=== PATIENT | male | born 1960 | race African-American/Black ===

== ENCOUNTER 2020-04-21 08:29 | Emergency (ER) | payer MEDICAID, OTHER ==
[~2020-04-21] VITALS: Ht 180.3 cm; Wt 81.6 kg
[2020-04-21 08:29] VITALS: BP 175/102
[~2020-04-21 08:29] MED LIST: ASPI-1052 PO; LANS30EC3 PO; LORA-478 PO; METF-1022 PO; SERT100T PO
--- NOTE | 2020-04-21 08:29 | NUR ---
CLAUDETTE BOOTH ALS TO ER BED 02
[2020-04-21] MEDS ORDERED: DIAZEPAM PFS 10 MG/2 ML SYR IVP ONE (08:40)
[2020-04-21] MEDS ORDERED: NACL 0.9% 2,000 ML IV ONE (08:40)
[2020-04-21 08:56] LABS: HEMATOCRIT 42.4 % (36-52); HEMOGLOBIN 14.1 g/dL (12.0-18.0); MEAN CORPUSCULAR HEMOGLOBIN 28 pg (27-31); MEAN CORPUSCULAR HGB CONC 33 g/dL (33-37); MEAN CORPUSCULAR VOLUME 85.2 fL (80-94); PLATELET COUNT (AUTO) 179 K/uL (140-450); RED BLOOD CELL COUNT(AUTO) 4.98 MIL/uL (4.20-6.10); RED CELL DISTRIBUTION WIDTH 16.5 % (11.6-13.7)
[2020-04-21] MEDS ORDERED: chlordiazePOXIDE 25 MG CAP PO SCH (09:00)
[2020-04-21 09:21] LABS: LYMPHOCYTES % (MANUAL) 20 % (20-46); MONOCYTES % (MANUAL) 15 % (5-12)
--- NOTE | 2020-04-21 09:28 | NUR ---
60 Y/O MALE BIBA S/P [facility] WITHDRAWAL. PT STATES HES BEEN ADDICTED TO [facility] AND WAS IN A REHAB FACILITY, UNTIL COVID 19 BEGAN, THEN HE WAS SENT HOME PREMATURELY D/T COVID RESTRICTION. SINCE 3 MONTHS AGO, PT HAS BEEN TAKING 1MG [facility] 3 TIMES DAILY. PT HAS BEEN TAKEN HALF DOSES FOR THIS LAST WEEK AND TOOK HIS LAST PILL LAST NIGHT. PT IS NOW EXPERIENCING TREMORS, ANXIETY, N/V. RESP EVEN AND UNLABORED. PT IS NSR. SP02 100% RA.
[2020-04-21 09:30] LABS: ALBUMIN 3.8 g/dL (3.4-5.0); ANION GAP 13.4 (8-16); CARBON DIOXIDE 27.1 mmol/L (21-32); CREATININE 1.3 mg/dL (0.6-1.3); POTASSIUM 4.5 mmol/L (3.5-5.1); TOTAL BILIRUBIN 0.3 mg/dL (0.0-1.0)
[2020-04-21 09:31] LABS: ACETAMINOPHEN < 0.5 ug/ml (10-30); SALICYLATE < 2.8 mg/dL (2.8-20.0)
--- NOTE | 2020-04-21 10:42 | NUR ---
PT IS RESTING IN BED, AWAKE AND ALERT. PT STATES HE IS FEELING BETTER, JUST MILD NAUSEA AT THE MOMENT. VSS. ALL NEEDS MET AT THIS TIME
[2020-04-21 11:48] VITALS: BP 110/64
--- NOTE | 2020-04-21 11:48 | NUR ---
Patient discharged with v/s stable. Written and verbal after care instructions given and explained. Patient alert, oriented and verbalized understanding of instructions. Ambulatory with steady gait. All questions addressed prior to discharge. ID band removed. Patient advised to follow up with PMD. Rx of LIBRIUM given. Patient educated on indication of medication including possible reaction and side effects. Opportunity to ask questions provided and answered.
--- NOTE | 2020-04-26 07:52 | NUR ---
LATE ENTRY- NORMAL SALINE 0.9% BOLUS DISCONTINUED AT 1148.
== END 2020-04-21 11:48 | disposition home or self-care (01) ==
LOC: MED 08:29
DX: F15.93 Other stimulant use, unspecified with withdrawal (principal); E11.9 Type 2 diabetes mellitus without complications; F41.9 Anxiety disorder, unspecified; R25.1 Tremor, unspecified
CPT/HCPCS: 36415; 80053; 82553; 83605; 85025; 93005; 96361; 96374; 99284; G0480; G0482; J3360; J7030